=== PATIENT | female | born 1985 | race Caucasian/White ===

== ENCOUNTER 2022-10-13 13:04 | Emergency (ER) | payer OTHER ==
[~2022-10-13] VITALS: Ht 170.2 cm; Wt 89.6 kg
[2022-10-13 13:13] VITALS: BP 107/63
== END 2022-10-13 14:56 | disposition home or self-care (01) ==
LOC: ER 13:04
DX: S90.112A Contusion of left great toe without damage to nail, initial encounter (principal); X58.XXXA Exposure to other specified factors, initial encounter; Y93.89 Activity, other specified; Y92.89 Other specified places as the place of occurrence of the external cause; Y99.8 Other external cause status
CPT/HCPCS: 73610; 73660; 99284; A6449